=== PATIENT | female | born 1975 | race Two or more races ===

== ENCOUNTER 2024-02-03 09:44 | Emergency (ER) | payer OTHER ==
[~2024-02-03] VITALS: Ht 172.7 cm; Wt 53.5 kg
[2024-02-03] MEDS ORDERED: METOCLOPRAMIDE HCL 5 MG/ML VIAL IM ONE (11:15)
[2024-02-03] MEDS ORDERED: HYOSCYAMINE SULFATE 0.125 MG TAB.SUBL SL ONE (11:15)
[2024-02-03] MEDS ORDERED: FAMOtidine 20 MG TABLET PO ONE (11:15)
[2024-02-03 11:59] LABS: HEMATOCRIT 35.2 % (36.0-45.00); HEMOGLOBIN 12.1 g/dL (12.0-15.00); MEAN CELL VOLUME 90.5 fL (80.00-100.00); MEAN CORPUSCULAR HEMOGLOBIN 31.1 pg (27.00-32.0); MEAN CORPUSCULAR HGB CONC 34.4 g/dl (32.0-36.0); PLATELET COUNT 157 K/uL (150-450); RED BLOOD COUNT 3.89 M/uL (4.00-6.00); RED CELL DISTRIBUTION WIDTH 13.2 % (11.5-14.5)
[2024-02-03 12:21] LABS: ALBUMIN 3.4 gm/dL (3.4-5.0); BILIRUBIN TOTAL 0.51 mg/dL (0.3-1.2); CALCIUM 8.7 mg/dL (8.5-10.1); CREATININE SERUM 0.7 mg/dL (0.55-1.02); GFR 90.08; GLOBULINA 2.9 G/DL (2.4-3.5); POTASSIUM 3.72 mEq/L (3.5-5.1); TOTAL PROTEIN 6.3 gm/dL (6.4-8.2)
== END 2024-02-03 14:12 | disposition home or self-care (01) ==
LOC: ER 09:45
PROVIDERS: General Practice
DX: A09 Infectious gastroenteritis and colitis, unspecified (principal); Z20.822 Contact with and (suspected) exposure to COVID-19; Z91.018 Allergy to other foods